=== PATIENT | female | born 1980 | race Caucasian/White ===

== ENCOUNTER 2017-08-21 12:32 | Day surgery (SDC) | payer MEDICAID, SELFPAY ==
[2017-08-21] VITALS (8 sets, daily range): BP systolic 116–131; BP diastolic 81–100; PULSE 62–80; RESP 16; TEMP 36.6–36.7; O2SAT 94–99; BMI 29.1
--- NOTE | 2017-08-21 | POC_PTH ---
PATIENT: SHADY CORTEZ LOC: [facility] [place] U#:[id number] AGE/SX: 36/F ROOM: RE08/21/[address]: Dr. Lynn Porter MD : 1980 BED: DIS: 08/21/2017 SPEC #: [id number] RECD: 08/21/17 16:26 STATUS: BETO KELI #: [id number] EMILY: 08/21/17 00:[address]: Lynn Porter DEPT: SURGICAL PATHOLOGY RECD BY: Loi Hatfield ENTERED: 08/22/17 09:27 SP TYPE: PROD CONC OTHR DR: Dr. Sherron Blue MD Tissues: Product of conception, NOS Procedures: Surgery Specimen Level IV HEADER OPERATION: Dilation and curettage, suction PRE-OP DIAGNOSIS: Incomplete spontaneous TISSUE SUBMITTED: Uterine curettings and products of conception MICROSCOPIC DIAGNOSIS Endometrium, curettings: Decidualized stroma, trophoblastic cells and rare chorionic villi consistent with products of conception. AM:radha 08/23/17 MICROSCOPIC DESCRIPTION Slides are reviewed. GROSS DESCRIPTION Received in fixative is one container labeled with the patient's name and designated products of conception. The specimen consists of multiple irregular fragments of light to dark burris soft tissue that in aggregate measure 7 x 6 x 0.6 cm. parts are not grossly recognized. Rn Child portions are submitted in two cassettes. / AM:radha 08/22/17 TC:5 CPT: 30617
[2017-08-21 13:29] LABS: Hematocrit 32.8 % (37-47); Mean Corp Hgb Conc 33.5 g/gl (32-36); Mean Corpuscular Hgb 31.8 pg (27.0-32.0); Mean Corpuscular Volume 94.8 fL (81-99); Mean Platelet Vol. 9.1 fl (6.2-12.0); Platelet Count 281 K/mm3 (150-450); RBC Distribution Width CV 12.8 % (11.6-14.6); RBC Distribution Width SD 43.9 fl (35.1-43.9); Red Blood Count 3.46 M/mm3 (4.2-5.4); White Blood Count 5.2 K/mm3 (4.4-11.0)
[2017-08-21 13:30] LABS: Scan Indicated on CBC? Y/N NO
--- NOTE | 2017-08-21 15:48 | PCM.DC.D&C ---
Discharge Diet: No Restrictions Discharge Activity: May not drive while taking narcotic pain medications., May Shower, May Take a Tub Bath May resume sexual activity in: 1-2 weeks Weight Bearing Status: Weight bearing as tolerated Lifting Restrictions: none Call your doctor if you observe: Fever of 101 or Higher, Calf discomfort, Uncontrolled pain Allergies/Adverse Reactions: Allergies amoxicillin Allergy (Verified 08/17/17 15:57) Rash Medications to take at Discharge Sertraline HCl [Zoloft] 50 mg PO DAILY 08/17/17 Acetaminophen/Codeine #3 [Tylenol#3] 1 - 2 tab PO Q4H PRN PRN #10 tab 08/21/17 The following prescriptions were given: Acetaminophen/Codeine #3 [Tylenol#3] 1 - 2 tab PO Q4H PRN PRN #10 tab PRN Reason: Pain Primary Care Physician: Sherron Blue MD [Primary Care Provider] - Please Follow Up With: Lynn Porter MD - [phone] When: 2 wks postop check
--- NOTE | 2017-08-21 15:51 | DCINST_ITS ---
Discharge Diet: No Restrictions Discharge Activity: May not drive while taking narcotic pain medications., May Shower, May Take a Tub Bath May resume sexual activity in: 1-2 weeks Weight Bearing Status: Weight bearing as tolerated Lifting Restrictions: none Call your doctor if you observe: Fever of 101 or Higher, Calf discomfort, Uncontrolled pain Allergies/Adverse Reactions: Allergies amoxicillin Allergy (Verified 08/17/17 15:57) Rash Medications to take at Discharge Sertraline HCl [Zoloft] 50 mg PO DAILY 08/17/17 Acetaminophen/Codeine #3 [Tylenol#3] 1 - 2 tab PO Q4H PRN PRN #10 tab 08/21/17 The following prescriptions were given: Acetaminophen/Codeine #3 [Tylenol#3] 1 - 2 tab PO Q4H PRN PRN #10 tab PRN Reason: Pain Primary Care Physician: Sherron Blue MD [Primary Care Provider] - Please Follow Up With: Lynn Porter MD - [phone] When: 2 wks postop check
--- NOTE | 2017-08-22 07:40 | PCM.OP.BLANK ---
Operative Report Date of Procedure: 08/21/17 - incomplete SAB 8+ wk EGA Operative Report Date of Procedure: 08/21/17 - Incomplete 8 wk EGA Problem List (1) Incomplete Status: Acute Report of Operation Date of Procedure: 08/21/17 Pre-Operative Diagnosis: Incomplete , 8 wk EGA Post-Operative Diagnosis: Same Surgery/Procedure Performed: Suction D and C Anesthesia: MAC IV sedation Estimated Blood Loss (mL): Minimal Complications: none. Drains: None. Fluids Replaced: LR Findings: Uterus sounds to 12 cm No cervical lesions noted. Products of conception consistent with placental tissue and clot noted. PATH: Products of conception, uterine curettings. Narrative Account: After the risks, benefits, alternatives of the procedure were reviewed with the patient informed consent was obtained. The patient was taken to the OR with IV running and placed in dorsal supine position on the operating table. She was given MAC IV sedation, and then repositioned to the dorsal lithotomy position and was prepped and draped in the usual sterile fashion. A Graves speculum was placed, the cervix identified and a paracervical block of 10cc of 1% lidocaine was placed. The anterior lip of the cervix was grasped with a single toothed tenaculum. The cervix was then easily dilated to allow admission of an 7 mm curved suction curette tip. The suction curette was then placed to the uterine fundus, suction applied, and POC were obtained. After most of the products of conception were removed a sharp curettage was performed and good Crei was noted in all quadrants of the uterus. One final pass was conducted with the suction curette and the remaining products of conception and uterine curettings were removed. A sponge stick was then used to remove any remaining tissue and blood from the upper vagina and cervix . All instruments were then removed from the vagina and cervix. Excellent hemostasis was noted. The patient was awakened from IV sedation, and then transferred to her recovery room bed in stable condition after tolerating the procedure well. Sponge , instrument, and needle counts were correct x two. Medications given intraoperatively included: Toradol 30 mg IV x one. For a complete listing of medications given intraoperatively, please see the anesthesia record.
== END 2017-08-21 17:18 | disposition home or self-care (01) ==
LOC: SDC 12:32 → AC 12:34
PROVIDERS: Family Provider Internal Medicine; PCP Internal Medicine; Visit Provider Obstetrics & Gynecology
PROC: (CPT 59812; principal; 2017-08-21 17:30)
DX: O03.4 Incomplete spontaneous abortion without complication (principal); O99.341 Other mental disorders complicating pregnancy, first trimester; F32.9 Major depressive disorder, single episode, unspecified; Z3A.08 8 weeks gestation of pregnancy
CPT/HCPCS: 01965; 59812; 85027; 88305; J7120; J2405

== ENCOUNTER 2019-01-07 23:09 | Emergency (ER) | payer MEDICAID, SELFPAY ==
[2019-01-07 23:10] VITALS: BP 119/88; PULSE 75; RESP 16; TEMP 36.5; O2SAT 98; BMI 35.1
--- NOTE | 2019-01-07 23:58 | ED.VIS.GEN ---
History of Present Illness Chief Complaint: Vag Bld, Preg Informant: Patient Narrative: She stated this evening she noticed she had some bright red blood per vagina. She is 8 weeks . She had a ultrasound as an outpatient that she showed showed intrauterine with normal heartbeat just last Saturday. She has had a miscarriage in the past. This is her second . She is seeing Dr. Locke. She denies any significant abdominal pain. She is having a little bit of cramping. She went through 2 pads tonight. She is concerned that she could be having a miscarriage tonight. Current severity is mild per patient. No clots. No tissue. Her blood type is a positive. Past Medical History - Allergies and Home Meds Allergies/Adverse Reactions: Allergies amoxicillin Allergy (Verified 01/07/19 23:09) Rash Primary Care Physician: Sherron Blue MD [Primary Care Provider] - Prior records reviewed: Yes Past Medical History: - - Reviewed Surgical History: - - Viewed Smoking Status: Never smoker Alcohol: None Drugs: None Review of Systems General: Denies: Chills, Fever, Sweats Eyes: Denies: Visual changes - bilaterally, Diplopia ENT: Denies: Rhinorrhea, Sore throat Cardiovascular: Denies: Chest pain, Palpitations Respiratory: Denies: Dyspnea, Cough, Dyspnea on exertion Gastrointestinal: Denies: Abdominal pain, Nausea, Vomiting, Diarrhea, Melena, Hematochezia Genitourinary: Reports: - - See HPI. Denies: Dysuria, Hematuria, Frequency Musculoskeletal: Denies: Back pain, Extremity Pain Skin: Denies: Rash, Wounds Neurological: Denies: Headache, Weakness, Numbness Physical Exam Vital Signs/Narrative: Vital Signs Temp Pulse Resp BP Pulse Ox 01/07/19 23:10 97.7 F L 75 16 119/88 H 98 General: Well nourished, Well developed, No Acute Distress Head: Normocephalic, Atraumatic Eyes: Perrl, EOMI ENT: Moist mucous membranes, No rhinorrhea Neck: Supple, Nontender Cardiovascular: Regular rate, Regular rhythm, No murmurs Respiratory: No distress, CTA bilaterally, Chest nontender Abdomen: Soft, Nontender, Nondistended, Normal bowel sounds : - - Mild bleeding from the cervical office which is closed on speculum exam. No tissue. Back: Nontender, Normal Inspection Extremities: Nontender, No edema Skin: Normal color, No rash Neurological: Alert, Oriented x3, Cranial nerves II-XII grossly intact, Normal Strength, Normal Sensation Psychological: Normal affect, Normal Mood Diagnostic/Tx/Re-eval - Medical Decision Making Patient resting comfortably. Pelvic exam shows a very mild amount of bleeding from a cervix that is closed. There is no tissue. No pain. 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 She may be having an implantation bleed versus miscarriage. She is a positive therefore does not need RhoGam. I do not feel she needs an emergent ultrasound tonight. She will monitor this and follow-up as an outpatient ED Disposition - Plan for ED Patient: Disposition: EMPLOYEE HEALTH - NA Diagnosis: Threatened in early Instructions: ED Miscarriage Poss Referrals: Raysa Locke MD [STAFF PHYSICIAN] -
[2019-01-08 01:06] VITALS: BP 120/78; PULSE 74; RESP 16; O2SAT 99
== END 2019-01-08 01:06 | disposition home or self-care (01) ==
PROVIDERS: Emergency Provider Emergency Medicine; Family Provider Internal Medicine; PCP Internal Medicine
DX: O20.0 Threatened abortion (principal); Z3A.08 8 weeks gestation of pregnancy
CPT/HCPCS: 99282

== ENCOUNTER 2019-08-06 19:00 | Inpatient (IN) | payer MEDICAID, SELFPAY ==
[2019-08-06 19:30] VITALS: BMI 35.2
--- NOTE | 2019-08-06 19:31 | PCM.HP.OB ---
- Problem List (1) Advanced maternal age (AMA), 40 years or greater Status: Acute (2) Rubella non-immune status, antepartum Status: Acute (3) History of depression Status: Acute (4) History of HPV infection Status: Acute (5) Gestational hypertension Status: Acute (6) 38 weeks gestation of Status: Acute History Date of Admission: 08/06/19 Final VANDANA: 08/19/19 Gestational age: 38 Weeks and 1 Days History of this : This is a 38 year-old, G 2, P 0010, at 38 weeks gestational age who presents for IOL for gHTN. No CLARK, vision changes, RUQ pain, epigastric pain. No ctx, vb, lof. Good FM. Surgical History: Surgical History (Last Updated 08/06/19 @ 19:44 by Marianne Maldonado DO) History of ovarian cystectomy Z98.890, Z87.42 Allergies amoxicillin Allergy (Verified 01/07/19 23:09) Rash Home Medications: Home Medications Sertraline HCl [Zoloft] 50 mg PO DAILY 08/17/17 Cetirizine HCl [Zyrtec] 10 mg PO DAILY 01/07/19 No122/Iron/Folic Acid [ Multi Tablet] 1 each PO DAILY 01/07/19 Smoking Status: Never smoker NST - FHR Rate Baby A Baseline: 120 Variability:: Moderate Accelerations:: 15 x 15 Decelerations:: None NST Reactive:: Yes FHR Category:: Category I Uterine Activity:: Occasional ctx's History Past Pregnancies: Past Pregnancies Delivery Date Name GA/ Weeks Outcome Route Wt Sex Labor Length Anesthesia Delivery Location Provider FOB Labs: GBS positive 1 hr GTT 119 Hgb 11.9 Plt 249 Rh positive Ab screen neg Rubella equivocal Hep B neg HIV NR Syphilis NR GC/CT neg UDS neg Review of Systems Gynecological: Reports: - - No reg ctx, vb, lof. Good FM Physical Exam General: Alert, No apparent distress HEENT: Atraumatic Abdomen: Soft, Non Tender, Gravid Extremities:: No edema Neurological: Neuro grossly intact Estimated gestational size: Appropriate for gestational size Assessment/Plan All Active Problems Advanced maternal age (AMA), 40 years or greater (Acute) Rubella non-immune status, antepartum (Acute) History of depression (Acute) History of HPV infection (Acute) Gestational hypertension (Acute) 38 weeks gestation of (Acute) This is a 38 year-old, G 2, P 0010, at 38 weeks gestational age who presents for IOL for gHTN. - Admit for routine intrapartum care - Cytotec induction. Will place soto when able - Epidural prn - GBS positive, PCN allergy, susceptible to clinda - Will monitor BP. If severe range BP's or pre-e symptoms, will obtain pre-e labs and possibly start mag gtt
[2019-08-06] MEDS: Lactated Ringers 1,000 ML 50 ML IV (20:10)
[2019-08-06 20:47] LABS: Absolute Lymphocyte Count 1.59 X10^3/uL (0.83-4.51); Absolute Neutrophil Count 7.1 X10^3/uL (2.0-7.7); Basophil# 0.05 X10^3/uL; Basophil% 0.5 % (0-1); Eosinophil# 0.17 X10^3/uL; Eosinophils% 1.7 % (0-5); Hematocrit 36.1 % (37-47); Hemoglobin 12.2 g/dL (12.0-15.0); Lymphocyte # 1.59 X10^3/ul (4.0); Lymphocyte % 16.1 % (19-41); Mean Corp Hgb Conc 33.8 g/dL (32-36); Mean Corpuscular Volume 97.6 fL (81-99); Mean Platelet Vol. 10.7 fl (6.2-12.0); Monocyte# 0.92 X10^3/uL; Monocyte% 9.3 % (0-10); NRBC Flagged by Analyzer 0 % (0-5); Neutrophil # 7.08 X10^3/uL (2.7-7.7); Neutrophil % 71.7 % (47-70); Platelet Count 212 K/mm3 (150-450); RBC Distribution Width CV 12.4 % (11.6-14.6); RBC Distribution Width SD 44.1 fl (35.1-43.9); White Blood Count 9.9 K/mm3 (4.4-11.0)
[2019-08-06 20:51] LABS: AST(SGOT) 17 U/L (15-37); Alanine Aminotransfer ALT/SGPT 19 U/L (13-56); Creatinine, Serum 0.78 mg/dL (0.55-1.02); EST Glomerular Filtration Rate 86 mL/min (>60); Est Glom Filt Rate - Afr Amer 104 mL/min (>60); Estimated Creatinine Clearance 89.75 ml/min; International Normalized Ratio 0.9; Prothrombin Time (Protime)PT. 12.1 SECONDS (11.7-14.9); Uric Acid 4.7 mg/dL (2.6-6.0)
[2019-08-06 20:52] LABS: Partial Thromboplast Time 28.7 Seconds (24.1-36.2)
[2019-08-06] MEDS: miSOPROStol 25 MCG TABLET VAGINAL (21:18)
[2019-08-06 21:19] LABS: Protein, Urine (Random) 33.3 mg/dL (<11.9); Protein:Creat Ratio 122 mg/g CRE (0-200)
[2019-08-07] VITALS (23 sets, daily range): BP systolic 120–145; BP diastolic 74–92; PULSE 75–100; RESP 14–18; TEMP 35.6–37.2; O2SAT 94–100
[2019-08-07] MEDS: Lactated Ringers 500 ML 999 ML IV ×2 (01:44→03:55)
[2019-08-07] MEDS: miSOPROStol 50 MCG TABLET VAGINAL (03:09)
--- NOTE | 2019-08-07 04:13 | PN_ITS ---
Progress Note Delayed entry. Called at 0350 regarding FHT. Second dose of Cytotec given around 0300. At bedside. Cvx closed. Pt in hands and knees. O2 on. FHT was 70 bpm for several minutes, and currently FHT 130/mod everett/no accels/+variable decels. [place] with irritability and no regular ctx pattern observed. Will continue resuscitative measures at this time and closely monitor. Discussed with patient that she is remote from delivery, and if decelerations continue will proceed with a section.
--- NOTE | 2019-08-07 04:40 | PCM.PN.BLA ---
Progress Note At bedside to discuss plan of care with patient. FHT has been 130/mod everett/+accels/no decels. Category 1 tracing at this time. Will continue with current management. Discussed with patient possible need for a if baby does not tolerate induction given that she is remote from delivery. All questions answered.
--- NOTE | 2019-08-07 05:21 | PCM.PN.BLA ---
Progress Note Patient then was up to restroom and upon returning FHT deceleration noted. Have been continuing resuscitative measures and FHT 130/mod everett/no accels/+late decelerations. Regular ctx's now on toco. Discussed with patient recommend a primary section for intolerance to labor. Reviewed r/b/a and patient desires to proceed with a C/S. She also requests permanent sterilization. Discussed that a tubal ligation is permanent and irreversible, and there is a risk of regret. Reviewed that there are other control options. She is 100% certain that she wants a tubal ligation.
[2019-08-07] MEDS: Sodium Citrate/Citric Acid 30 ML UDC PO (05:27)
--- NOTE | 2019-08-07 06:06 | FALS_PTH ---
PATIENT: SHADY CORTEZ LOC: [facility] U#:[id number] AGE/SX: 38/F ROOM: WP009 RE08/06/[address]: Dr. Marianne Maldonado DO : 1980 BED: 1 DIS: 08/09/2019 SPEC #: [id number] RECD: 08/07/19 12:03 STATUS: BETO KELI #: [id number] EMILY: 08/07/19 06:[address]: Marianne Maldonado DEPT: SURGICAL PATHOLOGY RECD BY: Michael Tucker ENTERED: 08/07/19 12:05 SP TYPE: FALL TUBES OTHR DR: Dr. Sherron Blue MD Tissues: Fallopian tube Procedures: Surgery Specimen Level IV HEADER OPERATION: Primary caesarean section, left partial salpingectomy PRE-OP DIAGNOSIS: Sterilization TISSUE SUBMITTED: Left fallopian tube MICROSCOPIC DIAGNOSIS Left fallopian tube, partial salpingectomy: Complete cross-section of fallopian tube with focal pseudodecidual change. AM:radha 08/10/19 MICROSCOPIC DESCRIPTION Slides are reviewed. GROSS DESCRIPTION Received is one container labeled with the patient's name and designated left fallopian tube. The specimen consists of a fallopian tube with an average length of 1.5 cm and has an average diameter of 0.7 cm. No mass lesions are identified. The specimen is bisected and totally submitted in one cassette. / AM:radha 08/07/19 TC:5 CPT: 52282
--- NOTE | 2019-08-07 07:07 | OP.PCM_ITS ---
Problem List (1) Advanced maternal age (AMA), 40 years or greater Status: Acute (2) Rubella non-immune status, antepartum Status: Acute (3) History of depression Status: Acute (4) History of HPV infection Status: Acute (5) Gestational hypertension Status: Acute (6) 38 weeks gestation of Status: Acute Report of Operation Date of Procedure: 08/07/19 Pre-Operative Diagnosis: 38 week gestation, AMA, gHTN, desires permanent sterilization Post-Operative Diagnosis: As above, intolerance to labor Surgery/Procedure Performed:: PLTCS via pfannenstiel skin incision, left partial salpingectomy Description of Surgical Findings:: Moderate amount of adhesions from prior midline vertical incision and prior surgery. The rectus muscles were adhered to the fascia. The peritoneum was adhered adhered to the anterior abdominal wall. The bladder was significantly adhered to the anterior right-side of the uterus. The right ovary and right fallopian tube were surgically absent. The left fallopian tube and left ovary were normal. The uterus was enlarged and there was a left fundal fibroid palpated to be about 3 to 4 cm in size. Viable male infant in cephalic prese ntation. Clear fluid. Normal and intact appearing placenta with a three-vessel cord. Type of Anesthesia:: Spinal Special Medications: None Specimen's removed: Placenta, left fallopian tube segment Drains: Jackson Estimated Blood Loss (mL): 800 Fluids Replaced: 1000 Description of Procedure: Indications: Patient is a 38-year-old -0-1-0 who presented at 38 weeks gestation for a scheduled induction for advanced maternal age and gestational hypertension. She was given 2 doses of Cytotec to start the induction as her cervix was closed. She had 2 prolonged heart rate decelerations, as well as late decelerations. The decision was made to proceed with a primary section given that she was remote from delivery and intolerance to labor. Risks, benefits, alternatives were discussed and the patient desired to proceed with a . She also desired permanent sterilization. Discussed permanency and risk of regret with sterilization. Discussed alternative control options. Procedure: Patient was taken to the operating room where spinal anesthesia was found to be adequate. She was prepped and draped in the dorsal position with a leftward tilt. A Pfannenstiel skin incision was made with a scalpel and carried down to the underlying layer of fascia. The fascia was incised the midline. The fascia was extended laterally using Bauer scissors. The fascia was dissected off of the rectus muscles using a combination of blunt and sharp dissection. The omentum was noted to be adhered to the peritoneum and the rectus muscles. The rectus muscles were in the midline and the peritoneum was entered bluntly with good visualization of the bladder. The peritoneum was adhered to the anterior uterus. Incision was bluntly extended with good visualization of the bladder. Bladder flap was unable to be created. The bladder was noted to be adhered to the right side of the anterior uterus. A low transverse incision was made on the uterus. Clear fluid was noted. Viable male was delivered through the hysterotomy without any force or delay. The cord was clamped and cut immediately and the infant was handed off to the nursery staff. Cord gases and cord blood were obtained. The placenta was delivered with manual extraction and noted to be intact and normal-appearing with a three-vessel cord. The uterus was cleared of all clot and debris. The uterus was unable to be exteriorized due to the size of the fundal fibroid. The uterine incision was closed Vicryl in a running locked fashion. Several additional [id number] sutures were placed for hemostasis. The left fallopian tube and ovary were noted to be normal-appearing. The left fallopian tube was followed out to the fimbriated end. A segment of the left fallopian tube was suture ligated and transected. The segment of the fallopian tube was sent to pathology for review. Hemostasis was noted. The right ovary and right fallopian tube were noted to be surgically absent. Uterine incision was again inspected and noted to be hemostatic. The peritoneum was closed in a running fashion with Vicryl. The fascia was closed in running fashion with Vicryl. Subcutaneous space was irrigated and made hemostatic with Bovie cautery. The subcutaneous space was reapproximated with Vicryl. The skin was closed in a subcuticular fashion. Steri-Strips and dressing were placed. Instrument counts were correct. Patient was taken to the recovery room in stable condition. Grafts/Implants Used: None - Complications None - Admit VTE Documentation VTE Present on Admission: No Delivery Classification: MELISA Type of Anesthesia:: Spinal Indications for : Distress Amniotic Fluid Description: Clear Drain: Jackson to straight drain Cord Entanglement: None Cord Vessel Description: 3 Vessels Infant Gender: Male (1 minute): 9 (5 minute): 9 Delayed cord clamping: No Antibiotic Given: Clindamycin 600mg IV x1 and Gentamicin 1.5mg/kg IV x1 Pt instructed on risks of surgery: Bleeding, Infection, Permanency, Failure Rate of 1 to 2%, Injury to surrounding structure(s) including bowel and bladder, Availability of other non-permanent control options Complications: None - Admit VTE Documentation VTE Present on Admission: No
[2019-08-07] MEDS: Oxytocin 30 units/NS 500 ml 30 UNITS/500 ML IV.SOLN 167 UNITS IV (07:59)
[2019-08-07] MEDS: DiphenhydrAMINE 25 MG Capsule PO ×2 (08:09→21:52)
[2019-08-07 08:44] LABS: Pathology Specimen OB SEE PATHOLOGY REPORT
[2019-08-07] MEDS: Lactated Ringers 1,000 ML 100 ML IV ×2 (11:07→16:20)
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
[2019-08-07] MEDS: Ketorolac 30 MG/ML Syringe IV ×2 (13:07→18:32)
[2019-08-07] MEDS: Ondansetron 4 MG/2 ML Vial IV (15:17)
--- NOTE | 2019-08-07 15:29 | CPS ---
did not start incentive, patient already up and moving around.
[2019-08-07] MEDS: Enoxaparin 40 MG/0.4 ML Syringe SC (18:33)
[2019-08-07] MEDS: Senna/Docusate Sodium 1 Tablet PO (21:52)
[2019-08-08 00:15] VITALS: BP 127/78; PULSE 87; RESP 18; TEMP 36.7; O2SAT 94
[2019-08-08] MEDS: Ketorolac 30 MG/ML Syringe IV ×4 (01:12→19:02)
[2019-08-08] MEDS: Lactated Ringers 1,000 ML 100 ML IV (01:12)
[2019-08-08 02:10] VITALS: PULSE 79; RESP 18; O2SAT 96
[2019-08-08 04:05] VITALS: BP 112/67; PULSE 82; RESP 16; TEMP 36.7; O2SAT 96
[2019-08-08] MEDS: 0.9% Saline Lock 10 ML Syringe IV ×3 (06:11→19:03)
[2019-08-08 06:16] LABS: Hematocrit 28.2 % (37-47); Hemoglobin 9.3 g/dL (12.0-15.0); Mean Corpuscular Hgb 32.5 pg (27.0-32.0); Mean Corpuscular Volume 98.6 fL (81-99); Mean Platelet Vol. 10.4 fl (6.2-12.0); Platelet Count 177 K/mm3 (150-450); RBC Distribution Width CV 12.6 % (11.6-14.6); RBC Distribution Width SD 45.1 fl (35.1-43.9); Red Blood Count 2.86 M/mm3 (4.2-5.4); White Blood Count 11.1 K/mm3 (4.4-11.0)
--- NOTE | 2019-08-08 09:03 | PN.OBGYN_ITS ---
Patient Problems: Active and Suspected Problems Advanced maternal age (AMA), 40 years or greater (Acute) Rubella non-immune status, antepartum (Acute) History of depression (Acute) History of HPV infection (Acute) Gestational hypertension (Acute) 38 weeks gestation of (Acute) Subjective: Pain well controlled. Average lochia. No further nausea or vomiting. Tolerating regular diet this morning. Has been up to urinate. - Physical Exam Vitals/I&O's: Vital Signs Temp Pulse Resp BP Pulse Ox 98.1 F 82 16 112/67 96 08/08/19 04:05 08/08/19 04:05 08/08/19 04:05 08/08/19 04:05 08/08/19 04:05 Oxygen Delivery Method Room Air Weight: 99.155 kg Body Mass Index (BMI) 35.2 Intake and Output for Last 24 Hours 08/06/19 08/07/19 08/08/19 23:59 23:59 23:59 Intake Total 3104.33 / 3104.33 1175.00 / 1175.00 Output Total 540 / 740 550 / 550 Balance 2564.33 / 2364.33 625.00 / 625.00 General: Alert, Cooperative, No apparent distress Abdomen: Soft, Non-Distended, Tender - Appropriately Extremities: Edema - 1+ Skin: Incision - Bandage has a moderate amount of sanguinous drainage. Laboratory Results 08/08/19 05:55: WBC 11.1 H, RBC 2.86 L, Hgb 9.3 L, Hct 28.2 L, MCV 98.6, MCH 32.5 H, MCHC 33.0, RDW Std Deviation 45.1 H, RDW Coeff of Татьяна 12.6, Plt Count 177, MPV 10.4 Current Medications Acetaminophen (Tylenol) 1,000 mg PO Q8H PRN PRN Reason: Pain Score 1-3/10 Bisacodyl (Dulcolax) 10 mg RECTAL UD PRN PRN Reason: If no BM Enoxaparin Sodium (Lovenox) 40 mg SC DAILY JOELLE Last Admin: 08/07/19 18:33 Dose: 40 mg Documented by: Hydrocortisone (Hytone) 1 applic TOPICAL TID PRN PRN; Protocol PRN Reason: Discomfort Naloxone HCl 4 mg/ Dextrose 504 mls @ 0 mls/hr IV .Q0M PRN; Protocol PRN Reason: Respiratory depression Ibuprofen (Motrin) 600 mg PO Q6H PRN PRN PRN Reason: Pain Score 1-3/10 Ketorolac Tromethamine (Toradol) 30 mg IV Q6H [facility] Stop: 08/09/19 07:01 Last Admin: 08/08/19 06:11 Dose: 30 mg Documented by: Methylergonovine Maleate (Methergine) 0.2 mg IM X1 PRN PRN Reason: Uterine Atony Naloxone HCl (Narcan) 0.02 mg IV Q1M PRN PRN Reason: RR <10 and pt unresponsive Ondansetron HCl (Zofran) 4 mg IV Q4H PRN PRN PRN Reason: Nausea Last Admin: 08/07/19 15:17 Dose: 4 mg Documented by: Oxycodone HCl (Oxyir) 5 - 10 mg PO Q4H PRN PRN PRN Reason: Pain Score 4-10/10 Prochlorperazine Edisylate (Compazine Iv) 10 mg IV Q6H PRN PRN PRN Reason: NAUSEA Senna/Docusate Sodium (Senokot-S, Piedad-Colace) 0 tablet PO DAILY PRN PRN Reason: Constipation Last Admin: 08/07/19 21:52 Dose: 1 tablet Documented by: Sertraline HCl (Zoloft) 50 mg PO DAILY [facility] Last Admin: 08/07/19 19:56 Dose: Not Given Documented by: Simethicone (Mylicon) 80 mg PO PCHS PRN PRN Reason: Indigestion/stomach pain Sodium Chloride () 5 - 15 ml IV UD PRN PRN Reason: SALINE FLUSH Last Admin: 08/08/19 06:11 Dose: 10 ml Documented by: Medical Necessity - Tobacco Use Smoking Status: Never smoker Assessment/Plan All Active Problems Advanced maternal age (AMA), 40 years or greater (Acute) Rubella non-immune status, antepartum (Acute) History of depression (Acute) History of HPV infection (Acute) Gestational hypertension (Acute) 38 weeks gestation of (Acute) Postoperative day #1 status post primary section for intolerance of labor. Patient is doing well. Routine instructions and care today. Encourage ambulation in the hallways. Change bandage after shower. Mild acute blood loss anemia appropriate for blood loss during the surgery. Patient is tolerating this well.
[2019-08-08 10:00] VITALS: BP 112/79; PULSE 90; RESP 16; TEMP 36.6
[2019-08-08] MEDS: Enoxaparin 40 MG/0.4 ML Syringe SC (10:20)
[2019-08-08] MEDS: Sertraline 50 MG Tablet PO (10:21)
[2019-08-08 16:00] VITALS: BP 109/65; PULSE 87; RESP 12; TEMP 37.3
[2019-08-08 20:00] VITALS: BP 123/87; PULSE 89; RESP 18; TEMP 37.1
[2019-08-09] MEDS: Ketorolac 30 MG/ML Syringe IV ×2 (00:53→07:04)
[2019-08-09] MEDS: 0.9% Saline Lock 10 ML Syringe IV (01:01)
[2019-08-09 01:40] VITALS: BP 122/86; PULSE 75; RESP 20; TEMP 36.3
[2019-08-09 08:50] VITALS: BP 146/97; PULSE 83; RESP 16; TEMP 36.4
--- NOTE | 2019-08-09 09:47 | PCM.PN.OB ---
Patient Problems: Active and Suspected Problems Advanced maternal age (AMA), 40 years or greater (Acute) Rubella non-immune status, antepartum (Acute) History of depression (Acute) History of HPV infection (Acute) Gestational hypertension (Acute) 38 weeks gestation of (Acute) Subjective: Pain well controlled. Average lochia. Positive flatus, no bowel movement. Tolerating regular diet. Ambulating urinating without difficulty. - Physical Exam Vitals/I&O's: Vital Signs Temp Pulse Resp BP Pulse Ox 97.5 F L 83 16 146/97 H 96 08/09/19 08:50 08/09/19 08:50 08/09/19 08:50 08/09/19 08:50 08/08/19 04:05 Oxygen Delivery Method Room Air Weight: 99.155 kg Body Mass Index (BMI) 35.2 Intake and Output for Last 24 Hours 08/07/19 08/08/19 08/09/19 23:59 23:59 23:59 Intake Total 3104.33 / 3104.33 1175.00 / 1175.00 Output Total 540 / 740 850 / 850 Balance 2564.33 / 2364.33 325.00 / 325.00 General: Alert, Cooperative, No apparent distress Abdomen: Soft, Non-Distended, Tender - Mildly Extremities: Edema - Trace Skin: Incision - The bandage is clean dry and intact Current Medications Acetaminophen (Tylenol) 1,000 mg PO Q8H PRN PRN Reason: Pain Score 1-3/10 Bisacodyl (Dulcolax) 10 mg RECTAL UD PRN PRN Reason: If no BM Enoxaparin Sodium (Lovenox) 40 mg SC DAILY JOELLE Last Admin: 08/08/19 10:20 Dose: 40 mg Documented by: Hydrocortisone (Hytone) 1 applic TOPICAL TID PRN PRN; Protocol PRN Reason: Discomfort Naloxone HCl 4 mg/ Dextrose 504 mls @ 0 mls/hr IV .Q0M PRN; Protocol PRN Reason: Respiratory depression Ibuprofen (Motrin) 600 mg PO Q6H PRN PRN PRN Reason: Pain Score 1-3/10 Methylergonovine Maleate (Methergine) 0.2 mg IM X1 PRN PRN Reason: Uterine Atony Naloxone HCl (Narcan) 0.02 mg IV Q1M PRN PRN Reason: RR <10 and pt unresponsive Ondansetron HCl (Zofran) 4 mg IV Q4H PRN PRN PRN Reason: Nausea Last Admin: 08/07/19 15:17 Dose: 4 mg Documented by: Oxycodone HCl (Oxyir) 5 - 10 mg PO Q4H PRN PRN PRN Reason: Pain Score 4-10/10 Prochlorperazine Edisylate (Compazine Iv) 10 mg IV Q6H PRN PRN PRN Reason: NAUSEA Senna/Docusate Sodium (Senokot-S, Piedad-Colace) 0 tablet PO DAILY PRN PRN Reason: Constipation Last Admin: 08/07/19 21:52 Dose: 1 tablet Documented by: Sertraline HCl (Zoloft) 50 mg PO DAILY JOEL[facility] Last Admin: 08/08/19 10:21 Dose: 50 mg Documented by: Simethicone (Mylicon) 80 mg PO PCHS PRN PRN Reason: Indigestion/stomach pain Sodium Chloride () 5 - 15 ml IV UD PRN PRN Reason: SALINE FLUSH Last Admin: 08/09/19 01:01 Dose: 5 ml Documented by: Medical Necessity - Tobacco Use Smoking Status: Never smoker Assessment/Plan All Active Problems Advanced maternal age (AMA), 40 years or greater (Acute) Rubella non-immune status, antepartum (Acute) History of depression (Acute) History of HPV infection (Acute) Gestational hypertension (Acute) 38 weeks gestation of (Acute) Postoperative day #2 status post primary section. Patient is doing well. Desires discharge home today. Routine instructions and prescriptions will be given. is doing well.
--- NOTE | 2019-08-09 09:51 | DCINST_ITS ---
Discharge Diet: No Restrictions Discharge Activity: Return to Normal Activity, May Not Drive - for 2 weeks, May not drive while taking narcotic pain medications., May Shower, May Take a Tub Bath - in 7 days. May resume sexual activity in: 4-6 weeks Lifting Restrictions: 20 pounds Additional Activity Instructions:: Nothing in the vagina for 4-6 weeks. You may return to work/school in 6 weeks. Call your doctor if your incision/area has: Continuous Slow Oozing, Sudden Increased Bleeding, Increased Pain/ Swelling, Increased Redness, Foul Smelling Discharge Call your doctor if you observe: Fever of 101 or Higher, Using more than one pad per hour - for 2 hours Suture Line Care: Avoid Pulling/Pushing, Avoid Pinching/Bending Cleanse incision/area with: Keep Dressing Clean & Dry Additional Instructions: If you experience any of the following, contact your healthcare provider. * Bleeding that soaks a pad every hour for 2 hours * Fever 100.4 or higher * Unrelieved incision or abdominal pain * Swelling, redness, discharge or bleeding from your incision or episiotomy site * Your incision begins to separate * Problems urinating (including inability to urinate or burning while urinating). * Visual changes * Severe headache * Flu-like symptoms * Pain or redness in one of both of your breasts * Pain, warmth, tenderness or swelling in your legs, especially the calf area * Frequent nausea and vomiting * Symptoms of depression or anxiety If you experience any of the following, call 911 or go to the nearest Emergency Room. * Chest pain * Problems breathing * Seizure activity * Partial or complete paralysis of a body part, slurred speech, weakness or drooping of the face, or a sudden inability to walk or hold your balance Allergies/Adverse Reactions: Allergies amoxicillin Allergy (Verified 08/06/19 19:33) Rash Medications to take at Discharge Sertraline HCl [Zoloft] 50 mg PO DAILY 08/17/17 No122/Iron/Folic Acid [ Multi Tablet] 1 each PO DAILY 01/07/19 Ibuprofen [Motrin] 800 mg PO TID PRN PRN #60 tab 08/09/19 The following prescriptions were given: Ibuprofen [Motrin] 800 mg PO TID PRN PRN #60 tab PRN Reason: Pain Prescription Printed Follow-Up: Call to make an appointment with your doctor for an incision check in 1-2 weeks. You will also need a 6 week post- follow up appointment. Test results from this visit will be discussed in further detail at your follow- up appointment, if applicable. Please Follow Up With: Raysa Locke MD - [phone] When: IN our office in 1-2 and 6 weeks or as needed Primary Care Physician: Sherron Blue MD [Primary Care Provider] -
--- NOTE | 2019-08-09 09:53 | PCM.DC.SUM ---
Discharge Date and Diagnosis - Problem List Patient Problems: Active and Suspected Problems Advanced maternal age (AMA), 40 years or greater (Acute) Rubella non-immune status, antepartum (Acute) History of depression (Acute) History of HPV infection (Acute) Gestational hypertension (Acute) 38 weeks gestation of (Acute) Date of Admission: 08/06/19 Date of Discharge: 08/09/19 - Primary Discharge Diagnosis Active and Suspected Problems Advanced maternal age (AMA), 40 years or greater (Acute) Rubella non-immune status, antepartum (Acute) History of depression (Acute) History of HPV infection (Acute) Gestational hypertension (Acute) 38 weeks gestation of (Acute) Hospital Course and Treatment Operations: - - Primary low transverse section and partial salpingectomy bilaterally Procedures: None Summary of Care Provided: The patient 38-year-old 2 para 0 who presented at 38+ weeks for induction of labor due to gestational hypertension. She underwent Cytotec cervical ripening, and before she was in active labor had regulatory assistant category 2 tracing remote from delivery. She underwent a primary low transverse section. She also desired partial salpingectomy for sterilization and this was performed. Surgery was performed without difficulty. Postoperatively, she had mild acute blood loss anemia which she tolerated well. By postoperative day #2 she was ambulating urinating tolerating regular diet and oral pain medications without difficulty. She was discharged home with routine and prescriptions and instructions. [] Patient Problems: Active and Suspected Problems Advanced maternal age (AMA), 40 years or greater (Acute) Rubella non-immune status, antepartum (Acute) History of depression (Acute) History of HPV infection (Acute) Gestational hypertension (Acute) 38 weeks gestation of (Acute) - Physical Exam Vitals/I&O's: Vital Signs Temp Pulse Resp BP Pulse Ox 97.5 F L 83 16 146/97 H 96 08/09/19 08:50 08/09/19 08:50 08/09/19 08:50 08/09/19 08:50 08/08/19 04:05 Oxygen Delivery Method Room Air Weight: 99.155 kg Body Mass Index (BMI) 35.2 Intake and Output for Last 24 Hours 08/07/19 08/08/19 08/09/19 23:59 23:59 23:59 Intake Total 3104.33 / 3104.33 1175.00 / 1175.00 Output Total 540 / 740 850 / 850 Balance 2564.33 / 2364.33 325.00 / 325.00 Current Medications Acetaminophen (Tylenol) 1,000 mg PO Q8H PRN PRN Reason: Pain Score 1-3/10 Bisacodyl (Dulcolax) 10 mg RECTAL UD PRN PRN Reason: If no BM Enoxaparin Sodium (Lovenox) 40 mg SC DAILY [facility] Last Admin: 08/08/19 10:20 Dose: 40 mg Documented by: Hydrocortisone (Hytone) 1 applic TOPICAL TID PRN PRN; Protocol PRN Reason: Discomfort Naloxone HCl 4 mg/ Dextrose 504 mls @ 0 mls/hr IV .Q0M PRN; Protocol PRN Reason: Respiratory depression Ibuprofen (Motrin) 600 mg PO Q6H PRN PRN PRN Reason: Pain Score 1-3/10 Methylergonovine Maleate (Methergine) 0.2 mg IM X1 PRN PRN Reason: Uterine Atony Naloxone HCl (Narcan) 0.02 mg IV Q1M PRN PRN Reason: RR <10 and pt unresponsive Ondansetron HCl (Zofran) 4 mg IV Q4H PRN PRN PRN Reason: Nausea Last Admin: 08/07/19 15:17 Dose: 4 mg Documented by: Oxycodone HCl (Oxyir) 5 - 10 mg PO Q4H PRN PRN PRN Reason: Pain Score 4-10/10 Prochlorperazine Edisylate (Compazine Iv) 10 mg IV Q6H PRN PRN PRN Reason: NAUSEA Senna/Docusate Sodium (Senokot-S, Piedad-Colace) 0 tablet PO DAILY PRN PRN Reason: Constipation Last Admin: 08/07/19 21:52 Dose: 1 tablet Documented by: Sertraline HCl (Zoloft) 50 mg PO DAILY [facility] Last Admin: 08/08/19 10:21 Dose: 50 mg Documented by: Simethicone (Mylicon) 80 mg PO PCHS PRN PRN Reason: Indigestion/stomach pain Sodium Chloride () 5 - 15 ml IV UD PRN PRN Reason: SALINE FLUSH Last Admin: 08/09/19 01:01 Dose: 5 ml Documented by: Discharge Diet: No Restrictions Discharge Activity: Return to Normal Activity, May Not Drive - for 2 weeks, May not drive while taking narcotic pain medications., May Shower, May Take a Tub Bath - in 7 days. May resume sexual activity in: 4-6 weeks Additional Activity Instructions:: Nothing in the vagina for 4-6 weeks. You may return to work/school in 6 weeks. Call your doctor if your incision/area has: Continuous Slow Oozing, Sudden Increased Bleeding, Increased Pain/ Swelling, Increased Redness, Foul Smelling Discharge Call your doctor if you observe: Fever of 101 or Higher, Using more than one pad per hour - for 2 hours Suture Line Care: Avoid Pulling/Pushing, Avoid Pinching/Bending Cleanse incision/area with: Keep Dressing Clean & Dry Home Medications: Medications to take at Discharge Sertraline HCl [Zoloft] 50 mg PO DAILY 08/17/17 No122/Iron/Folic Acid [ Multi Tablet] 1 each PO DAILY 01/07/19 Ibuprofen [Motrin] 800 mg PO TID PRN PRN #60 tab 08/09/19 Following Prescrptions Were Given to Patient: Ibuprofen [Motrin] 800 mg PO TID PRN PRN #60 tab PRN Reason: Pain Prescription Printed Primary Care Physician: Sherron Blue MD [Primary Care Provider] - Please Follow Up With: Raysa Locke MD - [phone] When: IN our office in 1-2 and 6 weeks or as needed Medical Necessity - Tobacco Use Smoking Status: Never smoker Meaningful Use Info Meaningful Use Diagnoses (Choose all that apply): None applicable
[2019-08-09] MEDS: Enoxaparin 40 MG/0.4 ML Syringe SC (11:14)
[2019-08-09] MEDS: Sertraline 50 MG Tablet PO (11:14)
[2019-08-09 13:58] VITALS: BP 146/92; PULSE 95; RESP 16; TEMP 36.3
== END 2019-08-09 14:20 | disposition home or self-care (01) | DRG 539 ==
PROVIDERS: Admitting Provider Obstetrics & Gynecology; Family Provider Internal Medicine; PCP Internal Medicine; Referring Provider Obstetrics & Gynecology; Visit Provider Obstetrics & Gynecology
DX: O13.4 Gestational [pregnancy-induced] hypertension without significant proteinuria, complicating childbirth (principal); O98.82 Other maternal infectious and parasitic diseases complicating childbirth; B95.1 Streptococcus, group B, as the cause of diseases classified elsewhere; O99.344 Other mental disorders complicating childbirth; F32.9 Major depressive disorder, single episode, unspecified; O76 Abnormality in fetal heart rate and rhythm complicating labor and delivery; Z3A.39 39 weeks gestation of pregnancy; Z37.0 Single live birth; O90.81 Anemia of the puerperium
CPT/HCPCS: 59025; 59050; 82565; 82570; 84156; 84450; 84460; 84550; 85025; 85027; 85610; 85730; 86850; 86900; 86901; 88302; 88305; 99218; J7120; A4216; G0378; J2405